=== PATIENT | male | born 1955 | race Caucasian/White ===

== ENCOUNTER → 2020-12-16 08:41 | Outpatient (BNVA) | payer OTHER, SELFPAY | PROVIDERS: PCP Family Medicine; Visit Provider Urology | DX: N40.1 Benign prostatic hyperplasia with lower urinary tract symptoms (principal); R32 Unspecified urinary incontinence; Z12.5 Encounter for screening for malignant neoplasm of prostate; N32.81 Overactive bladder; E66.01 Morbid (severe) obesity due to excess calories | CPT/HCPCS: 81003; G0103 ==

== ENCOUNTER 2024-04-23 11:15 | Emergency (ER) | payer OTHER, SELFPAY ==
[2024-04-23 11:20] VITALS: BP 103/62; PULSE 82; RESP 17; TEMP 36.6; O2SAT 98; BMI 38.7
--- NOTE | 2024-04-23 11:59 | CT_ITS ---
WS: [id number] CT ABDOMEN PELVIS TECHNIQUE: Contrast-enhanced CT of the abdomen and pelvis with coronal and sagittal reformatted images. CLINICAL INFORMATION: vomiting COMPARISON: None. DLP: 1170.[address] scans at [facility] use at least one of these dose optimization techniques: automated exposure control; mA and/or kV adjustment per patient size (includes targeted exams where dose is matched to clinical indication); or iterative reconstruction. FINDINGS: Hepatic steatosis. Cholecystectomy clips. Tiny esophageal hiatal hernia. Splenic granulomas. Normal portal vein and splenic vein. Adrenal glands are normal. Normal renal parenchyma enhancement. No hydronephrosis. Bilateral renal cortical atrophy. Tiny LEFT renal cyst. Lung bases are well aerated. Tiny nodule LEFT lower lobe. Normal pancreas. Aortic calcification. Celiac and SMA are patent. Normal sigmoid colon. Widemouth fat-containing umbilical hernia. Enlarged heterogeneously enhancing nodular prostate. Enhancing nodule measuring 3.[address]/CT abdomen pelvis w con* [id number] IMPRESSION: 1. Enlarged heterogeneously enhancing nodular prostate with dominant nodule me asuring 3.9 x 3.7 cm. Recommend correlation PSA. 2. Prior cholecystectomy. 3. Widemouth fat-containing umbilical hernia. No herniated bowel. 4. Bilateral renal cortical atrophy. 5. Normal caliber small and large bowel. No evidence of high-grade obstruction . 6. No other acute findings.
--- NOTE | 2024-04-23 12:05 | W.ED.NAVMDI ---
HPI - Nausea/Vomiting/Diarrhea General: Chief complaint: Nausea/Vomiting/Diarrhea Stated complaint: neck/back pain, n/v/d/f Time Seen by Provider: 04/23/24 11:55 Source: patient Mode of arrival: ambulatory Limitations: no limitations History of Present Illness: 68-year-old male states that he has been having vomiting diarrhea abdominal cramping he states been going on for months. He states that everything smells foul as well. States has had COVID test that are negative states his PCP had given him Zofran which has improved his nausea but states he still having some diarrhea. States he also has chronic back pain and is all pain hurts for years. Denies any chest pain or fever Associated nausea: Yes Associated symtoms: Reports nausea; Denies chest pain, dysuria or headache(s) Related Data Home Medications ?Medication ?Instructions ?Recorded ?Confirmed amitriptyline 50 mg tablet 50 mg PO DAILY 04/23/24 04/23/24 ciprofloxacin HCl 500 mg tablet 500 mg PO BID 04/23/24 04/23/24 clarithromycin 250 mg tablet 250 mg PO BID 04/23/24 04/23/24 gabapentin 600 mg tablet 300 mg PO QPM 04/23/24 04/23/24 glipizide 5 mg tablet 5 mg PO BID 04/23/24 04/23/24 hydrocodone 5 mg-acetaminophen 325 1 tab PO BID 04/23/24 04/23/24 mg tablet lisinopril 10 1 tab PO DAILY 04/23/24 04/23/24 mg-hydrochlorothiazide 12.5 mg tablet metformin 1,000 mg tablet 1,000 mg PO BID 04/23/24 04/23/24 nabumetone 500 mg tablet 500 mg PO BID 04/23/24 04/23/24 omeprazole 40 mg capsule,delayed 40 mg PO DAILY 04/23/24 04/23/24 release oxybutynin chloride 5 mg tablet 5 mg PO BID 04/23/24 04/23/24 pantoprazole 40 mg tablet,delayed 40 mg PO DAILY 04/23/24 04/23/24 release pioglitazone 45 mg tablet 45 mg PO DAILY 04/23/24 04/23/24 rosuvastatin 20 mg tablet 20 mg PO DAILY 04/23/24 04/23/24 semaglutide 0.25 mg or 0.5 mg (2 0.25 mg SUBCUT Q7D 04/23/24 04/23/24 mg/3 mL) subcutaneous pen injector (Ozempic) tamsulosin 0.4 mg capsule 0.4 mg PO DAILY 04/23/24 04/23/24 venlafaxine 150 mg 150 mg PO DAILY 04/23/24 04/23/24 capsule,extended release 24 hr Allergies Allergy/AdvReac Type Severity Reaction Status Date / Time No Known Allergies Allergy Unverified 12/16/20 08:44 Review of Systems Const: Denies: fever(s), chills, body aches or change in appetite ENMT: Denies: throat pain or dental pain Card: Denies: chest pain Resp: Denies: dyspnea GI: Reports: abdominal pain, nausea, vomiting and diarrhea : Denies: dysuria Musc: Reports: neck pain and back pain Skin/Breast: Denies: rash Neuro: Denies: headache(s) PFSH ED PFSH: Medical History Perforation bowel Morbid obesity Encouraged weight loss. BPH loc w urin obs/LUTS Acquired buried penis Urinary incontinence Overactive bladder Surgical History History of cholecystectomy History of appendectomy History of vasectomy Family History Father , AT AGE 81 Dementia Cancer Mother , AT AGE 36 Cancer Social History Smoking and tobacco/nicotine status: never used tobacco/nicotine Alcohol intake: never Substance/Drug Use: never Marital status: Current occupational status: employed Current occupation: [employer] Physical Exam Const: COMMON NORMALS: no acute distress, patient oriented x3 and healthy appearing HENMT: COMMON NORMALS: normocephalic and atraumatic HEAD & SCALP: normocephalic and atraumatic Eye: COMMON NORMALS: conjunctivae normal CONJUNCTIVA: Yes conjunctivae normal Neck/C-Spine: COMMON NORMALS: full ROM and supple Chest: COMMONS NORMALS: normal inspection of the chest Resp: COMMON NORMALS: normal respiratory effort, No retractions, No use of accessory muscles and clear to auscultation bilaterally AUSCULTATION: clear to auscultation bilaterally Cardio: COMMON NORMALS: regular rate, regular rhythm and No murmurs present (Cardio) RATE: regular rate RHYTHM: regular rhythm GI: COMMON NORMALS: Normal to inspection, nondistended, normoactive bowel sounds present, Soft to palpation, non-tender and no masses PALPATION: Yes Soft to palpation Extremity: COMMON NORMALS: normal to inspection and full ROM Neuro: COMMON NORMALS: patient oriented x3, moves all extremities and no focal motor deficits Psych: COMMON NORMALS: mental status grossly normal, Normal thought process present and cooperative THOUGHT PROCESS: Normal thought process present Skin: COMMON NORMALS: no rashes or lesions noted and no wounds GENERAL SKIN EXAM: no rashes or lesions noted Course Vital Signs: Vital signs: Vital Signs Temperature 97.8 F 04/23/24 11:20 Pulse Rate 75 04/23/24 14:00 Respiratory Rate 17 04/23/24 11:20 Blood Pressure 119/58 04/23/24 14:00 Pulse Oximetry 98 04/23/24 11:20 Oxygen Delivery Me thod Room Air 04/23/24 11:20 MDM - Nausea/Vomiting/Diarrhea Medical Decision Making Patient presents here with vomiting is been going on for months also had changes smells feeling weird and also neck pain that is chronic imaging and blood work here is all normal did inform him of the large prostate inform he needs to follow-up with his PCP he has Zofran at home that has improved his vomiting continue the Zofran return if worsening he understands agrees to plan Medical Records I reviewed the patient's medical records. Lab Data I reviewed the patient's lab results. 04/23/24 12:18 04/23/24 12:18 Radiology Impressions Abdomen/Pelvis CT 04/23/24 11:59 IMPRESSION: 1. Enlarged heterogeneously enhancing nodular prostate with dominant nodule measuring 3.9 x 3.7 cm. Recommend correlation PSA. 2. Prior cholecystectomy. 3. Widemouth fat-containing umbilical hernia. No herniated bowel. 4. Bilateral renal cortical atrophy. 5. Normal caliber small and large bowel. No evidence of high-grade obstruction. 6. No other acute findings. Cervical Spine X-Ray 04/23/24 12:41 IMPRESSION: No acute findings. Head CT 04/23/24 14:05 IMPRESSION: 1. No evidence of intracranial hemorrhage or mass effect. 2. Mild small vessel changes with mild parenchymal volume loss. 3. No acute intracranial findings. Laboratory Results WBC 7.36 10^3/uL (3.29-11.43) 04/23/24 12:18 RBC 4.19 10^6/uL (3.85-5.65) 04/23/24 12:18 Hgb 12.40 g/dL (11.27-16.99) 04/23/24 12:18 Hct 36.8 % (37-53) L 04/23/24 12:18 MCV 87.8 fl (82-101) 04/23/24 12:18 MCH 29.6 pg (27-33) 04/23/24 12:18 MCHC 33.7 g/dL (30-55) 04/23/24 12:18 RDW 13.0 % (12.1-15.1) 04/23/24 12:18 Plt Count 206 10^3/cmm (157-399) 04/23/24 12:18 MPV 10.4 fL (7.4-10.4) 04/23/24 12:18 Neut % (Auto) 76.1 % 04/23/24 12:18 Lymph % (Auto) 13.9 % 04/23/24 12:18 [place] % (Auto) 7.7 % 04/23/24 12:18 Eos % (Auto) 1.6 % 04/23/24 12:18 Baso % (Auto) 0.4 % 04/23/24 12:18 Neut # (Auto) 5.60 10^3/uL (1.8-7.7) 04/23/24 12:18 Lymph # (Auto) 1.0 10^3/uL (0.8-4.8) 04/23/24 12:18 [place] # (Auto) 0.6 10^3/uL (0.2-0.9) 04/23/24 12:18 Eos # (Auto) 0.1 10^3/uL (0.0-0.8) 04/23/24 12:18 Baso # (Auto) 0.0 10^3/uL (0.0-0.1) 04/23/24 12:18 Nucleated RBC % (auto) 0 % 04/23/24 12:18 Nucleated RBCs # 0.0 /100WBC 04/23/24 12:18 Sodium 135 mmol/L (136-145) L 04/23/24 12:18 Potassium 4.4 mmol/L (3.5-5.1) 04/23/24 12:18 Chloride 98 mmol/L (98-107) 04/23/24 12:18 Carbon Dioxide 24 mmol/L (22-29) 04/23/24 12:18 Anion Gap 17.4 (5-19) 04/23/24 12:18 BUN 24 mg/dL (8-23) H 04/23/24 12:18 Creatinine 2.1 mg/dL (0.7-1.2) H 04/23/24 12:18 GFR Calculation 31.8 mL/min (90-130) L 04/23/24 12:18 Glucose 164 mg/dL (65-115) H 04/23/24 12:18 Calculated Osmolality 288 mOsm/kg (285-295) 04/23/24 12:18 Calcium 8.8 mg/dL (8.5-10.5) 04/23/24 12:18 Total Bilirubin 0.5 mg/dL (0.15-1.2) 04/23/24 12:18 AST 23 U/L (0-40) 04/23/24 12:18 ALT 15 U/L (0-41) 04/23/24 12:18 Alkaline Phosphatase 70 U/L (40-130) 04/23/24 12:18 Total Protein 6.9 g/dL (6.6-8.7) 04/23/24 12:18 Albumin 4.1 g/dL (3.5-5.2) 04/23/24 12:18 Globulin 2.8 g/dL (1.3-4.6) 04/23/24 12:18 Lipase 52 U/L (13-60) 04/23/24 12:18 All radiology interpretation(s) finalized by discharge Discharge Plan Discharge Patient Disposition: Home Clinical Impression: Vomiting, Neck pain Condition: Stable Prescriptions: No Action ciprofloxacin HCl 500 mg tablet 500 mg PO BID pantoprazole 40 mg tablet,delayed release (DR/EC) 40 mg PO DAILY gabapentin 600 mg tablet 300 mg PO QPM clarithromycin 250 mg tablet 250 mg PO BID hydrocodone-acetaminophen 5-325 mg tablet 1 tab PO BID venlafaxine 150 mg capsule,extended release 24hr 150 mg PO DAILY pioglitazone 45 mg tablet 45 mg PO DAILY omeprazole 40 mg capsule,delayed release(DR/EC) 40 mg PO DAILY amitriptyline 50 mg tablet 50 mg PO DAILY tamsulosin 0.4 mg capsule 0.4 mg PO DAILY metformin 1,000 mg tablet 1,000 mg PO BID lisinopril-hydrochlorothiazide 10-12.5 mg tablet 1 tab PO DAILY oxybutynin chloride 5 mg tablet 5 mg PO BID glipizide 5 mg tablet 5 mg PO BID nabumetone 500 mg tablet 500 mg PO BID rosuvastatin 20 mg tablet 20 mg PO DAILY Ozempic 0.25 mg or 0.5 mg (2 mg/3 mL) pen injector 0.25 mg SUBCUT Q7D Discharge Orders: Discharge ED (Routine); Ordered 04/23/24 Ordered By: Brendon Montana Referrals: Ian Lima [Primary Care Provider] - 4-7 days Discharge Diet: Advance as tolerated Discharge Activity: Resume usual activity Patient Instructions: Acute Nausea and Vomiting (ED) Print Language: Faroese Coding Level of Care Code ED Bread Stacker for Danielle Arango
[2024-04-23 12:15] VITALS: BP 125/69
[2024-04-23] MEDS: ondansetron 2 mg/ML SDV 2 mL 4 MG IVP (12:16)
[2024-04-23 12:28] LABS: Basophils % 0.4 %; Eosinophils # 0.1 10^3/uL (0.0-0.8); Eosinophils % 1.6 %; Hematocrit 36.8 % (37-53); Lymphocytes % 13.9 %; Mean Corpuscular HGB Conc 33.7 g/dL (30-55); Mean Corpuscular Hemoglobin 29.6 pg (27-33); Mean Corpuscular Volume 87.8 fl (82-101); Mean Platelet Volume 10.4 fL (7.4-10.4); Monocytes # 0.6 10^3/uL (0.2-0.9); Monocytes % 7.7 %; Neutrophils % 76.1 %; Nucleated Red Blood Cells % 0 %; Platelet Count 206 10^3/cmm (157-399); Red Blood Count 4.19 10^6/uL (3.85-5.65); White Blood Count 7.36 10^3/uL (3.29-11.43)
[2024-04-23 12:30] VITALS: BP 124/66; PULSE 85
--- NOTE | 2024-04-23 12:41 | XRR_ITS ---
PROCEDURE INFORMATION: Exam: XR Cervical Spine Exam date and time: 04/23/2024 12:40 PM Age: 68 years old Clinical indication: Neck pain TECHNIQUE: Imaging protocol: Radiologic exam of the cervical spine. Views: 2 or 3 views. COMPARISON: No relevant prior studies available. FINDINGS: Bones/joints: Normal. No acute fracture. Normal alignment. Soft tissues: Unremarkable. XR/XR cervical spine 3V* [id number] IMPRESSION: No acute findings.
[2024-04-23 12:45] LABS: Alanine Aminotransferase 15 U/L (0-41); Albumin Level 4.1 g/dL (3.5-5.2); Alkaline Phosphatase 70 U/L (40-130); Anion Gap 17.4 (5-19); Aspartate Amino Transferase 23 U/L (0-40); Blood Urea Nitrogen 24 mg/dL (8-23); Calcium 8.8 mg/dL (8.5-10.5); Carbon Dioxide 24 mmol/L (22-29); Chloride 98 mmol/L (98-107); Globulin 2.8 g/dL (1.3-4.6); Glomerular Filtration Rate 31.8 mL/min (90-130); Glucose 164 mg/dL (65-115); Lipase 52 U/L (13-60); Osmolality Calculated 288 mOsm/kg (285-295); Potassium 4.4 mmol/L (3.5-5.1); Sodium 135 mmol/L (136-145); Total Bilirubin 0.5 mg/dL (0.15-1.2); Total Protein 6.9 g/dL (6.6-8.7)
[2024-04-23 13:00] VITALS: BP 109/63
[2024-04-23] MEDS: iohexol 350 mg/mL 500 mL Btl (per mL) IV (13:27)
[2024-04-23] MEDS: sodium chloride 0.9% 1,000 ML 999 ML IV (13:56)
[2024-04-23 14:00] VITALS: BP 119/58; PULSE 75
--- NOTE | 2024-04-23 14:05 | CT_ITS ---
WS: [id number] CT HEAD TECHNIQUE: Noncontrast CT of the head obtained from the skullbase to the vertex. CLINICAL INFORMATION: n/v COMPARISON: None. DLP: 1074.[address] scans at [facility] use at least one of these dose optimization techniques: automated exposure control; mA and/or kV adjustment per patient size (includes targeted exams where dose is matched to clinical indication); or iterative reconstruction. FINDINGS: Residual contrast from recent CT abdomen pelvis. No evidence of intracranial hemorrhage or mass effect. Ventricular system and basal cisterns are patent. Mild small vessel changes with mild parenchymal volume loss. No extra-axial fluid collections. No evidence of mass or mass effect. Vascular calcification. Paranasal sinuses and mastoid air cells are well aerated. .Normal visualized soft tissues. CT/CT head wo con* [id number] IMPRESSION: 1. No evidence of intracranial hemorrhage or mass effect. 2. Mild small vessel changes with mild parenchymal volume loss. 3. No acute intracranial findings.
[2024-04-23 15:28] VITALS: BP 122/73; PULSE 89
== END 2024-04-23 15:29 | disposition home or self-care (01) ==
PROVIDERS: Emergency Provider Emergency Medicine; PCP Family Medicine
DX: R11.10 Vomiting, unspecified (principal); M54.2 Cervicalgia; Z79.84 Long term (current) use of oral hypoglycemic drugs
CPT/HCPCS: 70450; 72040; 74177; 80053; 83690; 85025; 96361; 96374; 99285; J2405; J7030